=== PATIENT | male | born 1965 | race Two or more races ===

== ENCOUNTER 2025-04-16 07:49 | Outpatient (OUT) | payer OTHER, SELFPAY ==
--- OUTSIDE RECORDS SUMMARY | 2025-04-12 20:26 | XMS_ITS | Continuity of Care Document ---
Author Organization [facility] Address [address] [place] [address] Phone Care Team Providers Care Machine Boss Name Role Phone Kyler Esparza DO Attending Provider NON STAFF Primary Care Provider Unavailabl e Care Teams Patient Care Team Team Status: Active Member Role Status Dates NON STAFF Primary Care Provider Active Visit Care Team Team Status: Inactive Member Role Status Dates Kyler Esparza DO Attending Provider Active Start: April 08, 2025 End: April 08, 2025 NON STAFF Primary Care Provider Active Start: April 08, 2025 End: April 08, 2025 Patient Care Team Team Status: Inactive Member Role Status Dates NON STAFF Primary Care Provider Active Start: April 12, 2025 End: April 12, 2025 Kyler Esparza DO Attending Provider Active Start: April 12, 2025 End: April 12, 2025 Chief Complaint and Reason for Visit Reason for Visit Admit Date Essential tremor April 08, 2025 8:56am Myasthenia gravis April 08, 2025 8:56am Allergies, Adverse Reactions, Alerts Allergen Type Severity Reaction Last Updated Verified Status No Known Allergies Allergy Unknown 2024 9:00am Yes Active Social History Smoking Status Status Start Date End Date Date of Observa tion Never smoked tobacco (finding) December 09, 2023 9:24am Observation Status Observation Response Date of Response Legal Sex Male (finding) Sex Assigned At Male April Family History Relationship Condition Age at Onset Recorded Date/T carlos father Diabetes mellitus Unknown Family history of co ronary artery bypass surgery Unknown mother Parkinson's disease Unknown Malignant neoplasm Unknown sister Family history of carotid endarterectomy Unknown father Heart disease Unknown Unknown Diabetes mellitus Unknown mother Malignant neoplasm Unknown Problems Active Problems Medical Problem Onset Date Status Sjogren's syndrome Unknown Active Pneumonia due to COVID-19 virus Unknown Active COVID-19 Unknown Active Obstructive sleep apnea Unknown Active VLADIMIR (generalized anxiety disorder) Unknown Active Other osteoporosis without current pathological fracture Unknown Active Essential tremor Unknown Active Respiratory failure with hypoxia Unknown Active Non-alcoholic fatty liver disease Unknown Active Low back pain Unknown Active Hypothyroidism (acquired) Unknown Active Strain of lumbar paraspinal muscle Unknown Active Osteoarthritis thoracic spine Unknown Ac tive Orthostatic hypotension Unknown Active Osteoarthritis of left hip Unknown Activ e Chronic insomnia Unknown Active Hyperglycemia Unknown Active Hyperlipidemia Unknown Active Hypothyroidism Unknown Active Diabetes type 2, uncontrolled Unknown Ac tive Myasthenia gravis Unknown Active Status post total hip replacement, left Unknown Active Retinopathy Unknown Active BMI 30.0-30.9,adult Unknown Active Hypoxia Unknown Active History of thyroid cancer Unknown Active GERD (gastroesophageal reflux disease) Unknown Active Steatohepatitis Unknown Active Vitamin D deficiency Unknown Active Obesity Unknown Active Contusion of elbow, right Unknown Active Medications Medication Status Dose Units Route Directions Qty Days St art Date Stop Date End Date Instructions Adherence Gabapentin 100 mg Capsule Discont inued 100 MG PO Daily Dece er 2020 1:00am January 23, 2022 11:01 am Azathioprin e 50 mg Tablet Active 50 MG PO Twice daily [facility] er 2020 1:00am Unknown Ascorbic Acid (Vitamin C) (Vitamin C) 500 mg Tablet Discont inued 500 MG PO Daily 30 Dece er 2020 1:00am January 23, 2022 10:59 am Guaifenesin (Mucinex) 600 mg Tablet Extended Release 12hr Discont inued 600 MG PO Twice daily 20 Dece er 2020 1:00am January 23, 2022 11:01 am Dexamethaso ne (Decadron) 6 mg tablet Discont inued 6 MG PO Daily 7 Dece er 2020 1:00am January 23, 2022 11:00 am Pyridostigm ine [place] (Mestinon) 60 mg tablet Discont inued 30 MG PO Twice daily 20 Dece er 2020 1:00am January 23, 2022 11:02 am Take half a tablet twice a day Aspirin 81 mg capsule Discont inued 81 MG PO Twice daily 60 Decemb er 2020 1:00am January 23, 2022 10:59 am Levothyroxi ne (Synthroid) 75 mcg Tablet Discont inued 75 MCG PO Daily February 09, 2020 12:00a m January 23, 2022 11:02 am Cevimeline (Evoxac) 30 mg Capsule Active 1 CAP PO Three times daily February 09, 2020 12:00a m Unknown Ibuprofen 800 mg tablet Discont inued 800 MG PO Q6H as needed for pain February 09, 2020 12:00a m Dece janice 2020 1:51p m Levothyroxi ne 175 mcg Tablet Active 175 MCG PO Daily January 23, 2022 12:00a m Unknown Meloxicam 15 mg tablet Discont inued 15 MG PO Daily January 23, 2022 12:00a m Septe mber 2021 10:10 am Cholecalcif lavell (Vitamin D3) (Vitamin D3) 50 mcg (2,000 unit) Tablet Active 50 MCG PO Daily January 23, 2022 12:00a m Unknown Polyethylen e Glycol 3350 (Miralax) 17 gram Powder In Packet Discont inued 17 GM PO Daily as needed for Constipatio n 2021 12:00a m December 09, 2023 9:31a m Sennosides- Docusate Sodium (Stool Softener-St imulant Laxat) 8.6-50 mg Tablet Discont inued 2 TAB PO Daily 2021 12:00a m December 09, 2023 9:31a m Aspirin 81 mg Tablet,Randi yed Release (Dr/Ec) Discont inued 81 MG PO Twice daily Mar 2021 12:00a m December 09, 2023 9:30a m Tramadol 50 mg Tablet Discont inued 50 MG PO Q4H as needed for Pain Scale 1 - 5 2021 12:00a m December 09, 2023 9:31a m Acetaminoph en 500 mg Tablet Discont inued 1000 MG PO Q8H Mar 2021 12:00a m December 09, 2023 9:29a m Cefadroxil 500 mg Capsule Discont inued 500 MG PO Twice daily 2021 12:00a m December 09, 2023 9:30a m Morphine 15 mg Tablet Extended Release Discont inued 15 MG PO Q12H as needed for Pain 2021December 09, 2023 9:31a m Ondansetron 4 mg Tablet,Disi ntegrating Discont inued 8 MG PO Three times daily as needed for Nausea 2021 12:00a m December 09, 2023 9:31a m Oxycodone 5 mg Tablet Discont inued 5 MG PO Every 4 hours as needed for Pain Scale 6 - 10 2021December 09, 2023 9:31a m Ibuprofen 800 mg tablet Active 800 MG PO Every 8 hours as needed for pain 07 02December 09, 2023 12:00a m Unknown Cyclobenzap rine 10 mg tablet Active 10 MG PO Three times daily as needed for muscle spasm 10 December 09, 2023 12:00a m Unknown Zolpidem (Ambien) 5 mg tablet Active 5 MG PO Daily at bedtime 2024 12:00a m Unknown Primidone 50 mg tablet Active 25 MG PO Daily at bedtime 2024 12:00a m Unknown Immunizations Immunization Event Date Not Given Reason Dose Number Rn Camp Lot Number Vaccine Information Statement (VIS) Detail Administration Location Tetanus, Diphtheria, Pertussis (Tdap) April 29, 2019 Trivalent Influenza Vaccine May 11, 2010 Medical Equipment Device Date Implanted Device Details Acetabular shell March 27, 2022 MARIA TERESA: [id number] Issuing Agency: [facility] Device Id: [id number] Expiration Date: 2031-10-25 Lot Number: [id number] Ceramic femoral head prosthesis March 27, 2 022 MARIA TERESA: [id number] Issuing Agency: [facility] Device Id: [id number] Expiration Date: 2031-08-09 Lot Number: [id number] Coated hip femur prosthesis, modular March 27, 2022 MARIA TERESA: [id number] Issuing Agency: [facility] Device Id: [id number] Expiration Date: 2025-11-21 Lot Number: [id number] Non-constrained polyethylene acetabular liner March 27, 2022 MARIA TERESA: [id number] Issuing Agency: [facility] Device Id: [id number] Expiration Date: 2026-12-21 Lot Number: [id number] Vital Signs Vital Reading Result Reference Range Collection Date/Time Weight 101.32 kg April 08, 2025 8:59am Heart Rate 103 /min 60-100 April 08, 2025 8:59am Oxygen saturation by Pulse oximetry 97 % 95-100 April 08, 2025 8:59am BP Systolic 142 mm[Hg] 100-140 April 08, 2025 8:59am BP Diastolic 92 mm[Hg] 60-100 April 08, 2025 8:59am Advance Directives Advance Directive Response Recorded Date/ Time Advance Directives Yes August 21, 2023 10:47am Insurance Providers Guarantor Robert Bowie Address [address] [place] [address] Contact Info. Home Phone: Payer Policy Id Subscriber's Name Subscriber Id Effective Date Expiration Date O [id number] Reyna Bowie [id number] [employer] [id number] Robert Bowie [id number] [facility] [id number] Robert Bowie [id number] [employer] [id number] Robert Bowie [id number] Care Works [facility] [id number] Robert Bowie [id number] [facility] [id number] Robert Bowie [id number] Encounters Encounter Location(s) Arrival/Admit Date Discharge/Depart Date Provider(s) Departed Physician/Prov ider Office Visit -[facility] [place] April 08, 2025 8:56am April 08, 2025 9:25am Rafael José DO Departed Clinical -Lab [place] April 12, 2025 10:45am April 12, 2025 10:46am Rafael José DO Recent Diagnosis Onset Date Admit Date Essential tremor Unknown April 08, 2025 8:56am Myasthenia gravis Unknown March 8:56am Assessments Diagnosis Onset Date Resolution Status Admit Date Essential tremor acute Septembe r 2024 8:56am Myasthenia gravis acute Septemb er 2024 8:56am Plan of Treatment Author Kyler Esparza [facility] Authored April 08, 2025 9:30am It is my impression that the patient has a diagnosis of myasthenia gravis. He is on azathioprine 50 mg p.o. twice daily and this has been managed by the [facility] team every 6 months. The patient does not recall antibody testing or chest imaging for this diagnosis. He does state that overall, he feels his muscle strength is reasonably stable. He has no visual changes. No ptosis on sustained upgaze. Neck flexors are strong today. We will need an extensive evaluation to understand the patient's antibody status and to rule out thymoma. Plan: Acetylcholine receptor binding, blocking and modulating antibodies as well as Anti-MuSK antibody CT scan of the chest with contrast to evaluate for possible thymoma Continue azathioprine 50 mg p.o. twice daily We did talk about myasthenic crisis and signs and symptoms thereof and the need to proceed to the emergency department right away with any such signs or symptoms Potential high degree morbidity and mortality condition with need for ongoing investigation with imaging, lab evaluation and extensive discussion about life-threatening exacerbation thereof. The patient presents today really with questions related to essential tremor. Patient does have essential tremor on exam. I do not appreciate any definitive parkinsonian symptoms. Plan: Start primidone 25 mg p.o. nightly I did consider propranolol. However, given his concomitant myasthenia gravis, this medication should be avoided. Watch for any transition to Parkinson's type syndrome. Future Tests Future scheduled test information is unavailable Pending Tests Test Name Ordered Date Scheduled Date Acetylcholine Receptor Marial Uisa ng Ab April 12, 2025 10:47am Acetylcholine Receptor Block ing Ab April 12, 2025 10:47am Acetylcholine Recept Modulat ing Ab April 12, 2025 10:47am Anti-MuSK Antibody Results March 10:47am AChR Blocking Abs, Serum April 08, 2025 9: 24am April 12, 2025 10:47am AChR Modulating Abs, Serum April 08, 2025 9:24am April 12, 2025 10:47am CT chest w con April 08, 2025 9:24am Musk Antibody Test April 08, 2025 9:24am S eptember 2024 10:47am Future Visits Future appointment information is unavailable Referrals to Other Providers Referral information is unavailable Future Procedures Procedure Name Ordered Date Scheduled Date AChR Binding Abs, Serum April 08, 2025 9:2 4am April 12, 2025 10:47am Future Medications Future medication information is unavailable Patient Instructions Patient instructions are unavailable
--- OUTSIDE RECORDS SUMMARY | 2025-04-16 07:55 | XMS_ITS | Encounter Summary ---
Author Organization [facility] Address [address] [place] [address] Care Team Providers Care Rake Operator Name Role Phone Roverto Brown DO Primary Care Provider [phone] Martínez Cruzan René DO Primary Care Provider Source Comments In the event this information is protected by the Federal Confidentiality of Alcohol and Drug AbusePatient Records regulations: The Federal rules restrict any use of the information to criminally investigate or prosecute any alcohol or drug abuse patient.[facility] Encounter Details Date Type Department Care Team (Late st Contact Info) Description 01/31/2016 Get Medical Advice Radiation Oncology [address] [place] [address] Faith Dubon MD [address] [place] [address] RE: Test Result Question Social History Tobacco Use Types Packs/Day Years Used Date Smoking Tobacco: Never Alcohol Use Standard Drinks/Week Comments No 0 (1 standard drink = 0.6 oz pur e alcohol) Sex and Gender Information Value Date Recorded Sex Assigned at Not on file Legal Sex Male 9:27 AM EST Gender Identity Not on file Sexual Orientation Not on file documented as of this encounter Functional Status * Are you deaf or do you have serious difficulty hearing? Answer Date of Assessment Author No 02/22/2015 11:42 AM Patito Kaiser RN * Are you blind or do you have serious difficulty seeing, even when wearing glasses? Answer Date of Assessment Author No 02/22/2015 11:42 AM Patito Kaiser RN * Do you have serious difficulty walking or climbing stairs? Answer Date of Assessment Author No 02/22/2015 11:42 AM Patito Kaiser RN * Do you have difficulty dressing or bathing? Answer Date of Assessment Author No 02/22/2015 11:42 AM Patito Kaiser RN * Because of a physical, mental, or emotional condition, do you have difficulty doing errands alone such as visiting a doctor's office or shopping? Answer Date of Assessment Author No 02/22/2015 11:42 AM Patito Kaiser RN documented as of this encounter Mental Status * Because of a physical, mental, or emotional condition, do you have serious difficulty concentrating, remembering, or making decisions? Answer Entry Date Author No 02/22/2015 11:42 AM Patito Kaiser RN documented in this encounter Plan of Treatment Not on file documented as of this encounter Visit Diagnoses Not on filedocumented in this encounter Care Teams Rake Operator Relationship Specialty Start Date End Date Roverto Brown DO [address] [place] [address] PCP - General Family Medicine 05/26/14 07/17/17 Giuseppe Cruz DO [facility] [place] [address] PCP - General Family Medicine 07/18/17 documented as of this encounter
--- OUTSIDE RECORDS SUMMARY | 2025-04-16 07:55 | XMS_ITS | Encounter Summary ---
Author Organization [facility] Address [address] [place] [address] Care Team Providers Care Radio Frequency Engineer Name Role Phone IsaiahcmRoger DO Primary Care Provider [phone] Encounter Details Date Type Department Care Team (Late st Contact Info) Description 03/01/2023 Orders Only [facility] [address] [place] [address] Baldemar Ruggiero DPM [address] [address] Social History Tobacco Use Types Packs/Day Years Used Date Smoking Tobacco: Unknown Alcohol Use Standard Drinks/Week Comments Never 0 (1 standard drink = 0.6 oz pur e alcohol) caffeine 1-2 cups per day Sex and Gender Information Value Date Recorded Sex Assigned at Not on file Legal Sex Male 7:21 PM EDT Gender Identity Not on file Sexual Orientation Not on file documented as of this encounter Plan of Treatment Not on file documented as of this encounter Procedures Procedure Name Priority Date/Time Associated Diagnosis Comments US FOOT RIGHT Routine 01/31/2023 10:53 AM EDT US FOOT RIGHT Routine 01/31/2023 10:52 AM EDT documented in this encounter Results * US foot right (01/31/2023 10:53 AM EDT) Anatomical Region Laterality Modality Lower Extremities, Foot Right Ultrasou nd us Baldemar Ruggiero DPM IMG US PROCEDURES Final Res ult * US foot right (01/31/2023 10:52 AM EDT) Anatomical Region Laterality Modality Lower Extremities, Foot Right Ultrasou nd us Baldemar COLLADOM IMG US PROCEDURES Final Res ult documented in this encounter Visit Diagnoses Not on filedocumented in this encounter Care Teams Radio Frequency Engineer Relationship Specialty Start Date End Date Roger Cruz DO PCP - General Family Medicine 01/31/23 documented as of this encounter
--- OUTSIDE RECORDS SUMMARY | 2025-04-16 07:55 | XMS_ITS | Encounter Summary ---
Author Organization [facility] Address [address] [place] [address] Care Team Providers Care Solar Energy Engineer Name Role Phone Giuseppe Cruz René PACKER Primary Care Provider [phone] Source Comments In the event this information is protected by the Federal Confidentiality of Alcohol and Drug AbusePatient Records regulations: The Federal rules restrict any use of the information to criminally investigate or prosecute any alcohol or drug abuse patient.[facility] Encounter Details Date Type Department Care Team (Late st Contact Info) Description 01/08/2019 Patient Msg Neurology [address] [phone] Wolf Sr MD, PhD [address] [facility] [address] [place] [address] RE: Appointment Request Social History Tobacco Use Types Packs/Day Years Used Date Smoking Tobacco: Former Cigars Smokeless Tobacco: Never Comments:no cigars x10 yrs, only 1-2/yr Alcohol Use Standard Drinks/Week Comments No 0 (1 standard drink = 0.6 oz pur e alcohol) PHQ-2 Answer Date Recorded PHQ-2 score 1 04/11/2018 Sex and Gender Information Value Date Recorded [...] on filedocumented in this encounter Care Teams Solar Energy Engineer Relationship Specialty Start Date End Date Giuseppe Cruz DO [address] [place], [place] [id number] PCP - General Family Medicine 07/18/17 documented as of this encounter
--- OUTSIDE RECORDS SUMMARY | 2025-04-16 07:55 | XMS_ITS | Encounter Summary ---
Author Organization [facility] Address [address] [place] [address] Care Team Providers Care Extractor And Wringer Operator Name Role Phone Roverto Brown DO Primary Care Provider [phone] Giuseppe Cruz DO Primary Care Provider [phone] Source Comments In the event this information is protected by the Federal Confidentiality of Alcohol and Drug AbusePatient Records regulations: The Federal rules restrict any use of the information to criminally investigate or prosecute any alcohol or drug abuse patient.[facility] Encounter Details Date Type Department Care Team (Late st Contact Info) Description 03/20/2016 Patient Msg Neurology [address] [phone] Wolf Sr MD, PhD [address] [facility] [address] [place] [address] RE: Request an Appointment Social History Tobacco Use Types Packs/Day Years [...] Assessment Author No 02/22/2015 11:42 AM Patito Kaiesr RN * Are you blind or do [...] Date Author No 02/22/2015 11:42 AM Patito aKiser RN documented in this encounter Plan of Treatment Not on file documented as of this encounter Visit Diagnoses Not on filedocumented in this encounter Care Teams Extractor And Wringer Operator Relationship Specialty Start Date End Date Roverto Brown DO [address] [place] [address] PCP - General Family Medicine 05/26/14 07/17/17 Giuseppe Cruz DO [facility] [place] [address] PCP - General Family Medicine 07/18/17 documented as of this encounter
--- OUTSIDE RECORDS SUMMARY | 2025-04-16 07:56 | XMS_ITS | Encounter Summary ---
Author Organization [facility] Address [facility] [place] [address] Care Team Providers Care Seed Sales Manager Name Role Phone Giuseppe Cruz Primary Care Provider [phone] Source Comments In the event this information is protected by the Federal Confidentiality of Alcohol and Drug AbusePatient Records regulations: The Federal rules restrict any use of the information to criminally investigate or prosecute any alcohol or drug abuse patient.[facility] Encounter Details Date Type Department Care Team (Late st Contact Info) Description 11/26/2017 Patient Msg Medical Records [address] [place] [address] Provider, [facility]-related labs Social History Tobacco Use Types Packs/Day Years Used Date Smoking Tobacco: Never Smokeless Tobacco: Never Alcohol Use Standard Drinks/Week Comments [...] on filedocumented in this encounter Care Teams Seed Sales Manager Relationship Specialty Start Date End Date Giuseppe Cruz DO [address] [place] [address] PCP - General Family Medicine 07/18/17 documented as of this encounter
--- OUTSIDE RECORDS SUMMARY | 2025-04-16 07:56 | XMS_ITS | Patient Health Record ---
Author Organization [facility] [place] Address [address] [place] [address] Care Team Providers Care Plan Nurse Name Role Phone Roverto Brown DO Primary Care Provider Unavailabl e Reason For Referral No Information Medications Medication SIG (Take, Route, Frequency, Duration) Notes Start Date End Date Status Mestinon 60 mg 1 tablet QID; Durati on: 90 days TAKE 1 TABLET 8AM,NOON,4PM AND 8PM 06/24/2014 Active predniSONE 5 mg tablet Act agustina Evoxac 30 mg Active Restasis 0.05% emulsion Acti ve Plan Of Treatment No Information Insurance Providers Payer Name Payer Address Payer Phone Subscriber Number Group Number Insured Name Patient Relationship to Insured Coverage Start Date Coverage End Date [employer] PPO PLUS LOCAL PLAN [address] [place] [phone] [id number] Robert Bowie Self - patient is the insured 2
--- OUTSIDE RECORDS SUMMARY | 2025-04-16 07:56 | XMS_ITS | Clinical Summary ---
Author Organization [facility] Address [address] [place] [address] Care Team Providers Care Airline Mechanic Name Role Phone Giuseppe Cruz René PACKER Primary Care Provider [phone] Allergies No known active allergies Medications zolpidem (AMBIEN) 5 mg tablet at bedtime as needed. 4 Active cevimeline (EVOXAC) 30 mg capsule three times daily. 4 Active pregabalin (LYRICA) 50 mg capsuleIndication s:Myalgia Take one(1) capsule three times daily. 270 capsule 1 8 Active pyridostigmine (MESTINON) 60 mg tabletIndications :Myasthenia gravis without exacerbation (HCC) TAKE ONE-HALF(1/2) TABLET TWO(2) TIMES DAILY FOR 7 DAYS, THEN INCREASE TO ONE(1) TABLET TWICE DAILY. 60 tablet 5 8 Active levothyroxine (SYNTHROID) 175 mcg tablet Take 1 tablet by mouth once daily. 90 tablet 9 Active levothyroxine (SYNTHROID) 175 mcg tablet Take 1 tablet by mouth daily before breakfast. 90 tablet 3 9 Active azaTHIOprine (IMURAN) 50 mg tabletIndications :Myasthenia gravis without exacerbation (HCC) Take one(1) tablet two(2) times daily. 180 tablet 3 9 Active Active Problems Problem Noted Date Diagnosed Date Chronic fatigue 04/11/2018 LORRAINE on CPAP 04/24/2016 History of thyroid cancer 03/06/2016 Myalgia 12/27/2015 Insomnia due to medical condition 12/27/2015 Myasthenia gravis without exacerbation 5 Diplopia 03/14/2015 Malignant neoplasm of thyroid gland 06/09/2014 Family History Medical History Relation Comments Breast Cancer Mother Relation Status Comments Mother Social History Tobacco Use Types Packs/Day Years Used Date Smoking Tobacco: Former Cigars Smokeless Tobacco: Never Tobacco Cessation:Counseling Given: No Comments:no cigars x10 yrs, only 1-2/yr Alcohol Use Standard Drinks/Week Comments No 0 (1 standard drink = 0.6 oz pur e alcohol) PHQ-2 Answer Date Recorded PHQ-2 score 1 04/11/2018 Area Deprivation Index Answer Date Elijah rded National Score (1-100), lower number is lower ri sk Not on file 06/29/2020 State Score (1-10), lower number is lower risk N ot on file 06/29/2020 Data from: https://www.neighborhoodatlas.medicine.[facility]/. Last address used for calculation Not on file 06/29/2020 Sex and Gender Information Value Date Recorded Sex Assigned at Not on file Legal Sex Male 9:27 AM EST Gender Identity Not on file Sexual Orientation Not on file Last Filed Vital Signs Vital Sign Reading Time Taken Comments Blood Pressure 126/90 07/16/2018 4:02 PM EST Pulse 91 07/16/2018 4:02 PM EST Temperature 36.5 C (97.7 F) 07/16/2018 4:02 PM EST Respiratory Rate 18 07/16/2018 4:02 PM EST Oxygen Saturation 100% 03/14/2015 3:50 PM EDT Inhaled Oxygen Concentration - - Weight 97.4 kg (214 lb 12.8 oz) 07/16/2018 4:02 PM EST Height 180.3 cm (5' 11 ) 04/11/2018 10: 48 AM EDT Body Mass Index 29.96 04/11/2018 10:48 AM EDT Plan of Treatment Health Maintenance Due Date Last Done Comments Anxiety Screening 1981 Depression Screening 1981 HIV Screening 1981 Hepatitis C Screening 1981 DTaP,Tdap,Td Vaccine (1 - Tdap) 1982 CT Colonography 2008 Cologuard (FIT-DNA) 2008 Colonoscopy 2008 Colorectal Cancer Screening 2008 Fecal Occult Blood 2008 Sigmoidoscopy 2008 Pneumococcal Vaccine: 50+ (1 of 1 - PCV) 2013 Shingrix Vaccine (1 of 2) 2013 Diabetes Screening 09/15/2021 09/15/2018, 1 , 11/08/2015, Additional history exists Lipid Screening 09/15/2023 09/15/2018 Prostate Cancer Screening Discussion 09/15/2023 09/15/2018 Influenza Vaccine (#1) 2025 05/11/2010 RSV Vaccine (1 - 1-dose 75+ series) 2038 Procedures Procedure Name Priority Date/Time Associated Diagnosis Comments PSA/PROSTSPECAG SCRN Fax 09/15/2018 10:00 AM EST COMPREHENSIVE METABOLIC PANEL Fax 09/15/2018 10:00 AM EST LIPID PANEL, FASTING Fax 09/15/2018 10:00 AM EST from Last 3 Months or Most Recently Relevant to Health Maintenance Results * PSA/PROSTSPECAG SCRN (09/15/2018 10:00 AM EST) PSA Screening 0.65 0.00 - 2.59 ng/mL 09/16/2018 12:12 AM EST [facility] Comment:Total PSA test metho dology used is the Electrochemiluminescence Immunoassay. 09/15/2018 10:0 0 AM EST 09/15/2018 2:57 PM EST us [facility] Provider LABORATORY Final Result [facility] [address] [place] [address] * (ABNORMAL) LIPID PANEL BASIC (09/15/2018 10:00 AM EST) Cholesterol, Total 148 <200 mg/dL 09/15/2018 11:56 PM EST [facility] Comment: <200 mg/dL, Desirable 200-239 mg/dL, Borderline high >239 mg/dL, High Triglyceride 78 <150 mg/dL 09/15/2018 11:56 PM [facility] Comment: <150 mg/dL, Normal 150-199 mg/dL, Borderline high 200-499 mg/dL, High >499 mg/dL, Very high HDL Cholesterol 33(L) >39 mg/dL 9 11:56 PM [facility] Comment: 40-59 mg/dL, Acceptable >59 mg/dL, High: Negative risk factor for coronary heart disease <40 mg/dL, Low: Positive risk factor for coronary heart disease LDL Cholesterol, Calculated 99 <100 mg/dL 09/15/2018 11:56 PM [facility] Comment: <100 mg/dL, Optimal 100-129 mg/dL, Near optimal/above optimal 130-159 mg/dL, Borderline high 160-189 mg/dL, High >189 mg/dL, Very high Secondary prevention optimal LDL Cholesterol levels are recommended to be < 70 mg/dL Non HDL Cholesterol 115 <130 mg/dL 09/15/2018 11:56 PM [facility] Comment: <130 mg/dL, Optimal 130-159 mg/dL, Near optimal/above optimal 160-189 mg/dL, Borderline high 190-219 mg/dL, High >219 mg/dL, Very high Secondary prevention optimal non HDL Cholesterol levels are recommended to be < 100 mg/dL Fasting Time Unknown hrs 09/15/2018 5:17 PM [facility] VLDL Cholesterol 16 <30 mg/dL 09/15/19 19 11:56 PM [facility] TC:HDL Ratio 4.48 <5.10 09/15/2018 11:56 PM [facility] LDL:HDL Ratio 3.00(H) <2.54 09/15/2018 11:56 PM [facility] Comment: Reference: 1. National Cholesterol Education Program ATP III Guideline At-A-Glance Quick Desk Reference: National Heart, Lung, and Blood [place]. National Institutes of Health. 2001: NIH Publication No. 01-3305. 2. An International Atherosclerosis Society position paper: global recommendations for the management of dyslipidemia: executive summary, Atherosclerosis. 2014: 232(2):410-413. 09/15/2018 10:0 0 AM EST 09/15/2018 2:57 PM EST us [facility] Provider LABORATORY Final Result [facility] [address] [place] [address] * COMP METABOLIC PANEL (09/15/2018 10:00 AM EST) Protein, Total 6.5 6.3 - 8.0 g/dL 09/15/2018 11:56 PM EST [facility] Albumin 3.9 3.9 - 4.9 g/dL 09/15/2018 11:56 PM EST [facility] Calcium 9.0 8.5 - 10.2 mg/dL 09/15/2018 11:56 PM EST [facility] Bilirubin, Total 0.3 0.2 - 1.3 mg/dL 09/15/2018 11:56 PM [facility] Alkaline Phosphatase 92 38 - 113 U/L 09/15/2018 11:56 PM EST [facility] AST 38 14 - 40 U/L 09/15/2018 11:56 PM [facility] Glucose 85 74 - 99 mg/dL 09/15/2018 11:56 PM [facility] Comment: The [place] Diabetes Association (ADA) provides guidance for cutoff values for fasting glucose and random glucose. The ADA defines fasting as no caloric intake for at least 8 hours. Fasting plasma glucose results between 100 to 125 mg/dL indicate increased risk for diabetes (prediabetes). Fasting plasma glucose results greater than or equal to 126 mg/dL meet the criteria for diagnosis of diabetes. In the absence of unequivocal hyperglycemia, results should be confirmed by repeat testing. In a patient with classic symptoms of hyperglycemia or hyperglycemic crisis, random plasma glucose results greater than or equal to 200 mg/dL meet the criteria for diagnosis of diabetes. Reference: Standards of Medical Care in Diabetes 2016, [place] Diabetes Association. Diabetes Care. 2016.39(Suppl 1). BUN 17 9 - 24 mg/dL 09/15/2018 11:56 PM [facility] Creatinine 0.89 0.73 - 1.22 mg/dL 09/15/2018 11:56 PM [facility] Sodium 144 136 - 144 mmol/L 09/15/2018 11:56 PM [facility] Potassium 3.9 3.7 - 5.1 mmol/L 09/15/2018 11:56 PM EST [facility] Chloride 105 97 - 105 mmol/L 09/15/2018 11:56 PM [facility] CO2 27 22 - 30 mmol/L 09/15/2018 11:56 PM [facility] Anion Gap 12 9 - 18 mmol/L 09/15/2018 11:56 PM [facility] ALT 14 10 - 54 U/L 09/15/2018 11:56 PM [facility] eGFR- >60 09/15/2018 11:56 PM [facility] eGFR-All Other Races >60 . 09/15/2018 11:56 PM [facility] Comment: eGFR (Estimated GFR) Units of measure: mL/min/1.73 meters squared eGFR is derived from the reexpressed MDRD Study equation using the following parameters: serum creatinine, age, gender and race. The creatinine assay has been calibrated to be traceable to IDMS. An eGFR <60 mL/min/1.73m2 for >3 months is consistent with chronic kidney disease. Refer to KDOQI guidelines for clinical interpretation. In patients with unstable renal function, e.g. those with acute kidney injury, the eGFR may not accurately reflect actual GFR. 09/15/2018 10:0 0 AM EST 09/15/2018 2:57 PM EST us [facility] Provider LABORATORY Final Result [facility] [address] [place] [address] from Last 3 Months or Most Recently Relevant to Health Maintenance Insurance [facility] PPO Care Teams Airline Mechanic Relationship Specialty Start Date End Date Giuseppe Cruz DO [address] [place] [address] PCP - General Family Medicine 07/18/17
--- OUTSIDE RECORDS SUMMARY | 2025-04-16 07:56 | XMS_ITS | Encounter Summary ---
Author Organization [facility] Address [address] [place] [address] Care Team Providers Care Aerial Sprayer Name Role Phone Giuseppe Cruz René PACKER Primary Care Provider [phone] Source Comments In the event this information is protected by the Federal Confidentiality of Alcohol and Drug AbusePatient Records regulations: The Federal rules restrict any use of the information to criminally investigate or prosecute any alcohol or drug abuse patient.[facility] Encounter Details Date Type Department Care Team (Late st Contact Info) Description 09/18/2017 Get Medical Advice Neurology [address] [place] [address] Wolf Sr MD, PhD [address] [facility] [address] [place], [place] [phone] RE: Medication Question (Not Renewal) Social History Tobacco Use Types Packs/Day Years [...] on filedocumented in this encounter Care Teams Aerial Sprayer Relationship Specialty Start Date End Date Giuseppe Cruz DO [address] [place] [address] PCP - General Family Medicine 07/18/17 documented as of this encounter
--- OUTSIDE RECORDS SUMMARY | 2025-04-16 07:56 | XMS_ITS | Encounter Summary ---
Author Organization [facility] Address [address] [place] [address] Care Team Providers Care Development Mechanic Name Role Phone Giuseppe Cruz René PACKER Primary Care Provider [phone] Source Comments In the event this information is protected by the Federal Confidentiality of Alcohol and Drug AbusePatient Records regulations: The Federal rules restrict any use of the information to criminally investigate or prosecute any alcohol or drug abuse patient.[facility] Encounter Details Date Type Department Care Team (Late st Contact Info) Description 11/27/2017 Get Medical Advice Neurology [address] [place] [address] Wolf Sr MD, PhD [address] [facility] [address] [place], [place] [phone] RE: Non-Urgent Medical Question Social History Tobacco Use Types Packs/Day [...] on filedocumented in this encounter Care Teams Development Mechanic Relationship Specialty Start Date End Date Giuseppe Cruz DO [address] [place] [address] PCP - General Family Medicine 07/18/17 documented as of this encounter
--- OUTSIDE RECORDS SUMMARY | 2025-04-16 07:56 | XMS_ITS | Encounter Summary ---
Author Organization [facility] Address [address] [place] [address] Care Team Providers Care Subwarehouse Supervisor Name Role Phone Roverto Brown DO Primary Care Provider [phone] Giuseppe Cruz DO Primary Care Provider [phone] Source Comments In the event this information is protected by the Federal Confidentiality of Alcohol and Drug AbusePatient Records regulations: The Federal rules restrict any use of the information to criminally investigate or prosecute any alcohol or drug abuse patient.[facility] Encounter Details Date Type Department Care Team (Late st Contact Info) Description 12/02/2016 Patient Msg Neurology [address] [place] [phone] Wolf Sr MD, PhD [address] [facility] [address] [place] [address] RE: Request an Appointment Social [...] on filedocumented in this encounter Care Teams Subwarehouse Supervisor Relationship Specialty Start Date End Date Roverto Brown DO [address] [place] [address] PCP - General Family Medicine 05/26/14 07/17/17 Giuseppe Cruz DO [facility] [place] [address] PCP - General Family Medicine 07/18/17 documented as of this encounter
--- OUTSIDE RECORDS SUMMARY | 2025-04-16 07:56 | XMS_ITS | Clinical Summary ---
Author Organization [facility] Address [address] [place] [address] Care Team Providers Care Trust Manager Name Role Phone Nancy Roger Valentine DO Primary Care Provider [phone] Allergies No known active allergies Medications levothyroxine (Synthroid, Levoxyl) 175 MCG tablet Take by mouth Daily before meals. Active cevimeline (Evoxac) 30 MG capsule Take 30 mg by mouth in the morning and 30 mg in the evening and 30 mg before bedtime. Active escitalopram (Lexapro) 10 MG tablet Take 10 mg by mouth in the morning. Active zolpidem (Ambien) 10 MG tablet TAKE 1 TABLET BY MOUTH AT BEDTIME NEEDED FOR DIFFICULTY FALLING ASLEEP 3 Active cholecalciferol (Vitamin D-3) 50 MCG (2000 UT) tablet Take 1 tablet by mouth in the morning. 3 Active Active Problems No known active problems Family History Medical History Relation Name Comments Diabetes Father Heart disease Father Cancer Mother Heart disease Other 1 PAternal uncle Heart disease Other 2 Maternal uncle Heart disease Paternal Grandfather Diabetes Paternal Grandmother Heart disease Sibling Relation Name Status Comments Father Mother Other 1 PAternal uncle Other 2 Maternal uncle Paternal Grandfather Paternal Grandmother Sibling Alive Social History Tobacco Use Types Packs/Day Years Used Date Smoking Tobacco: Unknown Tobacco Cessation:Counseling Given: Not Answered Alcohol Use Standard Drinks/Week Comments Never 0 (1 standard drink = 0.6 oz pure alcohol) caffeine intake: 1-2 cups per day Sex and Gender Information Value Date Recorded Sex Assigned at Not on file Legal Sex Male 7:21 PM EDT Gender Identity Not on file Sexual Orientation Not on file Last Filed Vital Signs Vital Sign Reading Time Taken Comments Blood Pressure 133/82 07/25/2023 10:15 AM EST Pulse 79 07/25/2023 10:15 AM EST Temperature - - Respiratory Rate - - Oxygen Saturation - - Inhaled Oxygen Concentration - - Weight 102 kg (225 lb) 07/25/2023 10:15 AM EST Height 180.3 cm (5' 11 ) 07/25/2023 10:15 AM EST Body Mass Index 31.38 07/25/2023 10:15 AM EST Plan of Treatment Not on file Insurance [employer] Care Teams Trust Manager Relationship Specialty Start Date End Date Roger Cruz DO PCP - General Family Medicine 01/31/23
--- OUTSIDE RECORDS SUMMARY | 2025-04-16 07:56 | XMS_ITS | Encounter Summary ---
Author Organization [facility] Address [address] [place] [address] Care Team Providers Care Radio Frequency Technician Name Role Phone Roverto Brown DO Primary Care Provider [phone] Giuseppe Cruz DO Primary Care Provider [phone] Source Comments In the event this information is protected by the Federal Confidentiality of Alcohol and Drug AbusePatient Records regulations: The Federal rules restrict any use of the information to criminally investigate or prosecute any alcohol or drug abuse patient.[facility] Encounter Details Date Type Department Care Team (Late st Contact Info) Description 08/10/2016 Get Medical Advice Neurology [address] [phone] Wolf Sr MD, PhD [address] [facility] [address] [place], [place] [phone] RE: Non-Urgent Medical Question Social History Tobacco [...] Patito Kaiser RN documented in this encounter Miscellaneous Notes * Telephone Encounter - Autumn Erickson (Rn) - 08/10/2016 12:40 PM EST S -- Per [employer] message: I have a question about having a cold. when I cough I have some trouble breathing. it's not my lungs but at the bottom of my esophagus feels like it's being squeezed. is this normal with myasthenia gravis? B -- Pt last seen by Dr. Sr 04/24/16: IMPRESSION: Now that all the investigations have been completed, the final clinical diagnosis is seropositive (AChR blocking antibodies) s/p papillary thyroid cancer (disease free, low risk stage 1) with CT chest negative for thymoma, now asymptomatic for MG on azathioprine and off Mestinon & steroid; myalgias due to azathioprine have subsided on Lyrica, and possibly spontaneously. Diagnostic List - Myasthenia gravis without exacerbation (primary encounter diagnosis) Diplopia Myalgia Malignant neoplasm of thyroid gland Obstructive sleep apnea on CPAP Mr. Bowie understands the diagnosis, had all his questions answered and agrees with the followingplan of management. ?? PLAN & RECOMMENDATIONS: 1. Remind patient's oncologist that he is presently taking azathioprine (Imuran), which can potentially increase incidence of malignancies 2. Continue with Lyrica at 50 mg three times daily x 6 mon, then if doing well, consider decreasingto two(2) times daily. 3. Follow-up in with me in 12 months A -- Spoke with pt. He started having cold symptoms 2-3 days ago, has progressively worsened-more nasal congestion and when he coughs, he feels like the lower part of my esophagus by my stomach tightens up. Denied any swallowing difficulty. Mild SOB he thinks r/t congestion. Cough is productive with opaque/yellow phlegm. He has talked with his PCP office-could not be seen today but advised to go to urgent care is sxs worsen. R -- Nurse advised him to increase fluid intake-try tea, brothy soups, stay warm, rest. Call back or go to local ED if sxs worsen or swallowing problems/increased respiratory distress. Follow up with PCP. Conveyed that nurse initially discussed MyChart message with Dr. Sr-most likely where he has tight feeling with cough not r/t myasthenia gravis. Pt verbalized understanding. documented in this encounter Plan of Treatment Not on file documented as of this encounter Visit Diagnoses Not on filedocumented in this encounter Care Teams Radio Frequency Technician Relationship Specialty Start Date End Date Roverto Brown DO [address] [place] [address] PCP - General Family Medicine 05/26/14 07/17/17 Giuseppe Cruz DO [address] [place] [address] PCP - General Family Medicine 07/18/17 documented as of this encounter
--- OUTSIDE RECORDS SUMMARY | 2025-04-16 07:56 | XMS_ITS ---
Author Organization [facility] Address [address] [place], [place] [id number] Care Team Providers Care Rubber Ball Finisher Name Role Phone Giuseppe Cruz DO Primary Care Provider [phone] Active Problems Problem Noted Date Diagnosed Date Chronic fatigue 04/11/2018 LORRAINE on CPAP 04/24/2016 History of thyroid cancer 03/06/2016 Myalgia 12/27/2015 Insomnia due to medical condition 12/27/2015 Myasthenia gravis without exacerbation 5 Diplopia 03/14/2015 Malignant neoplasm of thyroid gland 06/09/2014 Current Treatment and Therapy Plans No current plan information found. Past Treatment and Therapy Plans
--- OUTSIDE RECORDS SUMMARY | 2025-04-16 07:56 | XMS_ITS | Encounter Summary ---
Author Organization [facility] Address [address] [place] [address] Care Team Providers Care Product Planner Name Role Phone Giuseppe Cruz René PACKER Primary Care Provider [phone] Source Comments In the event this information is protected by the Federal Confidentiality of Alcohol and Drug AbusePatient Records regulations: The Federal rules restrict any use of the information to criminally investigate or prosecute any alcohol or drug abuse patient.[facility] Encounter Details Date Type Department Care Team (Late st Contact Info) Description 05/11/2019 Patient Msg Neurology [address] [phone] Wolf Sr MD, PhD [address] [facility] [address] [place] [address] RE: Appointment Cancellation Request Social History Tobacco Use Types Packs/Day [...] on filedocumented in this encounter Care Teams Product Planner Relationship Specialty Start Date End Date Giuseppe Cruz [place] [address] PCP - General Family Medicine 07/18/17 documented as of this encounter
--- OUTSIDE RECORDS SUMMARY | 2025-04-16 07:56 | XMS_ITS | Encounter Summary ---
Author Organization [facility] Address [address] [place] [address] Care Team Providers Care Rotary Drier Operator Name Role Phone Giuseppe Cruz René PACKER Primary Care Provider [phone] Source Comments In the event this information is protected by the Federal Confidentiality of Alcohol and Drug AbusePatient Records regulations: The Federal rules restrict any use of the information to criminally investigate or prosecute any alcohol or drug abuse patient.[facility] Encounter Details Date Type Department Care Team (Late st Contact Info) Description 05/07/2018 Get Medical Advice Neurology [address] [place] [address] Wolf Sr MD, PhD [address] [facility] [address] [place], [place] [phone] RE: Medication Question (Not Renewal) Social History [...] on filedocumented in this encounter Care Teams Rotary Drier Operator Relationship Specialty Start Date End Date Giuseppe Cruz DO [address] [place], [place] [phone] PCP - General Family Medicine 07/18/17 documented as of this encounter
--- OUTSIDE RECORDS SUMMARY | 2025-04-16 07:56 | XMS_ITS | Encounter Summary ---
Author Organization [facility] Address [address] [place] [address] Care Team Providers Care Industrial Relations Worker Name Role Phone Roverto Brown DO Primary Care Provider [phone] Giuseppe Cruz DO Primary Care Provider [phone] Source Comments In the event this information is protected by the Federal Confidentiality of Alcohol and Drug AbusePatient Records regulations: The Federal rules restrict any use of the information to criminally investigate or prosecute any alcohol or drug abuse patient.[facility] Encounter Details Date Type Department Care Team (Late st Contact Info) Description 06/11/2017 Get Medical Advice Neurology [address] [phone] Wolf Sr MD, PhD [address] [facility] [address] [place], [place] [phone] RE: Non-Urgent Medical Question Social History Tobacco [...] on filedocumented in this encounter Care Teams Industrial Relations Worker Relationship Specialty Start Date End Date Roverto Brown DO [address] [place] [address] PCP - General Family Medicine 05/26/14 07/17/17 Giuseppe Cruz DO [facility] [place] [address] PCP - General Family Medicine 07/18/17 documented as of this encounter
--- OUTSIDE RECORDS SUMMARY | 2025-04-16 07:56 | XMS_ITS | Encounter Summary ---
Author Organization [facility] Address [address] [place] [address] Care Team Providers Care Cigarette Tipper Name Role Phone Roverto Brown DO Primary Care Provider [phone] Giuseppe Cruz DO Primary Care Provider [phone] Source Comments In the event this information is protected by the Federal Confidentiality of Alcohol and Drug AbusePatient Records regulations: The Federal rules restrict any use of the information to criminally investigate or prosecute any alcohol or drug abuse patient.[facility] Encounter Details Date Type Department Care Team (Late st Contact Info) Description 06/19/2017 Get Medical Advice Neurology [address] [id number] Wolf Sr MD, PhD [address] [facility] [facility] [address] [place], [place] [phone] RE: Non-Urgent Medical Question Social History Tobacco [...] on filedocumented in this encounter Care Teams Cigarette Tipper Relationship Specialty Start Date End Date Roverto Brown DO [address] [place] [address] PCP - General Family Medicine 05/26/14 07/17/17 Giuseppe Cruz DO [facility] [place] [address] PCP - General Family Medicine 07/18/17 documented as of this encounter
--- NOTE | 2025-04-16 08:11 | CT_ITS ---
The [address] [address] Patient Name: SESAR DAY MRN: [id number] date: 1965 Sex: M Assigned Patient Location: LAB Current Patient Location: LAB Accession/Order Number: [id number] Exam Date: 04/16/2025 08:45 Report Date: 04/16/2025 09:33 At the request of: YANELI CASANOVA DO Procedure: CT chest w con CT CHEST WITH INTRAVENOUS CONTRAST: CLINICAL HISTORY: Myasthenia Gravis COMPARISON: None TECHNIQUE: Spiral images were obtained through the chest following intravenous administration of 100 mL of Omnipaque 300. Images were reviewed using both narrow and wide window settings. This CT exam was performed using one or more following dose reduction techniques: Automated exposure control, adjustment of the mA and/or kV according to patient size, or use of iterative reconstruction technique. FINDINGS: The heart is not enlarged. There is no pericardial effusion. No aortic aneurysm or dissection is seen. There is no mediastinal or hilar lymphadenopathy. No mediastinal mass or residual thymic tissue is noted. The bony structures are intact. Slight dextroscoliotic curvature and endplate spurring are present. Minor basilar scarring or atelectasis is noted. There is no consolidation, pleural effusion or discrete soft tissue nodules. No pneumothorax is seen. Limited cuts through the upper abdomen show is suspected fatty liver. CT/CT chest w con IMPRESSION: MINOR ATELECTASIS AND/OR SCARRING. NO OTHER SIGNIFICANT FINDINGS. Impression dictated by: Jolie Carrion M.D. 04/16/2025 9:33 AM Dictation Location: [place] [address] Electronically authenticated by: [id number] Y Date: 04/16/2025 09:33
[2025-04-16 08:16] LABS: Estimated GFR (African America >60 (>=60 mL/min/1.73m^2); Estimated GFR (Non-African Ame >60 (>=60 mL/min/1.73m^2)
== END 2025-04-16 07:50 | disposition home or self-care (01) ==
LOC: LAB 07:53
PROVIDERS: Pathology Anatomic Pathology & Clinical Pathology; Visit Provider Psychiatry & Neurology Neurology
DX: G70.00 Myasthenia gravis without (acute) exacerbation (principal)
CPT/HCPCS: 36415; 71260; 82565; Q9967